=== PATIENT | male | born 1950 | race Caucasian/White ===

== ENCOUNTER 2017-09-26 10:24 | Inpatient (IN) | payer MEDICARE, OTHER ==
[2017-09-26 11:09] LABS: % EOSINOPHILS 0.9 % (0.0-5.0); % LYMPHOCYTES 21.1 % (20.0-50.0); % MONOCYTES 10.1 % (2.0-10.0); % NEUTROPHILS 67.9 % (40.0-80.0); EOSINOPHILE ABSOLUTE 0.1 Th/cmm (0.1-0.4); HEMATOCRIT 47.2 % (41.0-60); HEMOGLOBIN 16.3 gm/dL (12-16); LYMPHOCYTE ABSOLUTE 1.4 Th/cmm (1.5-3.0); MEAN CELL VOLUME 93.5 fl (80-99); MEAN CORPUSCULAR HEMOGLOBIN 32.3 pg (27.0-31.0); MEAN CORPUSCULAR HGB CONC 34.6 pg (28.0-36.0); MEAN PLATELET VOLUME 7.6 fl; MONOCYTE ABSOLUTE 0.7 Th/cmm (0.3-1.0); NEUTROPHILE ABSOLUTE 4.5 Th/cmm (1.8-8.0); PLATELET COUNT 109 Th/cmm (150-400); RED BLOOD COUNT 5.04 Mil/cmm (3.80-5.80); RED CELL DISTRIBUTION WIDTH 13.4 % (11.5-20.0); WHITE BLOOD COUNT 6.7 Th/cmm (4.8-10.8)
[2017-09-26 11:17] LABS: ALB/GLOB RATIO 1.3 (1.0-1.8); ALBUMIN 3.8 gm/dL (4.2-5.5); ALKALINE PHOSPHATASE 79 U/L (34-104); ANION GAP 11.4 (7.0-16.0); BILIRUBIN,TOTAL 1.3 mg/dL (0.3-1.0); BUN - UREA NITROGEN 19 mg/dL (7-25); CALCIUM SERUM 9.5 mg/dL (8.6-10.3); CARBON DIOXIDE 23.7 mEq/L (21.0-31.0); CHLORIDE 106 mEq/L (98-107); CHOLESTEROL 114 mg/dL (<200); CREATININE - SERUM 0.7 mg/dL (0.7-1.3); GFR AFRICAN-AMERICAN > 60.0 ml/min (>90); GFR NON AFRICAN-AMERICAN > 60.0 ml/min; GLUCOSE 104 mg/dL (70-105); HDL -HIGH DENSITY LIPOPROTEIN 41 mg/dL (23-92); POTASSIUM SERUM 4.1 mEq/L (3.5-5.1); SGOT 83 U/L (13-39); SGPT/ALT 91 U/L (7-52); SODIUM SERUM 137 mEq/L (136-145); TOTAL PROTEIN,SERUM 6.7 gm/dL (6.0-8.3); TRIGLYCERIDES 77 mg/dL (<150)
--- NOTE | 2017-09-26 11:19 | Diagnostic Imaging Report ---
Portable chest x-ray HISTORY: Chest pain The heart is enlarged. There are bilateral interstitial lung changes with an overall appearance that suggests chronic change. Clinical correlation is needed. No pleural fluid. No definite hilar or mediastinal abnormalities. IMPRESSION: 1. Cardiomegaly 2. Bilateral lower lobe interstitial lung changes. The overall appearance suggests a chronic etiology. However, clinical correlation is needed.
--- NOTE | 2017-09-26 11:19 | Diagnostic Imaging Report ---
CT scan of the brain without contrast History: Stroke, CVA Total DLP equals 708 CTDI equals 38.7 Axial sections were obtained from the base of the skull to the vertex. There is a normal ventricular system size. No focal parenchymal lesions are seen. No evidence of any mass effect or shift of midline structures. No extra-axial masses or abnormal fluid collections. Impression: Negative examination
--- NOTE | 2017-09-26 11:21 | ED Physician Chart ---
ED Chief Complaint/HPI - Patient Information Date Seen:: 09/26/17 Time Seen:: 10:45 Chief Complaint:: Palpitations History of Present Illness:: onset x one day of palpitations, C/P, and dyspnea; pt denies trauma, H/As, S/T, neck pain, Abd. Pain, A/N/V/D/c, fever, chills, or urinary s/s Allergies:: Allergies Allergy/AdvReac Type Severity Reaction Status Date / Time No Known Allergies Allergy Verified 09/26/17 10:45 Vitals:: Vital Signs - 8 hr 09/26/17 09/26/17 10:46 11:09 Temp 97.6 F 98.8 F HR 118 88 RR 22 18 BP 169/124 143/77 O2 Sat % 97 98 Historian:: Patient Review:: Nurse's Note Reviewed ED Review of Systems - Review of Systems General/Constitutional: No fever, No chills, No weight loss, No weakness, No diaphoresis, No edema, No loss of appetite Skin: No skin lesions, No rash, No bruising Head: No headache, No light-headedness Eyes: No loss of vision, No pain, No diplopia ENT: No earache, No nasal drainage, No sore throat, No tinnitus Neck: No neck pain, No swelling, No thyromegaly, No stiffness, No mass noted Cardio Vascular: Chest pain, Palpitations, No PND, No orthopnea, No edema Pulmonary: SOB, No cough, No sputum, No wheezing GI: No nausea, No vomiting, No diarrhea, No pain, No melena, No hematochezia, No constipation, No hematemesis G/U: No dysuria, No frequency, No hematuria, No nacturia Musculoskeletal: No bone or joint pain, No back pain, No muscle pain Endocrine: No polyuria, No polydipsia Psychiatric: No prior psych history, No depression, No anxiety, No suicidal ideation, No homicidal ideation, No auditory hallucination, No visual hallucination Hematopoietic: No bruising, No lymphadenopathy Allergic/Immuno: No urticaria, No angioedema Neurological: No syncope, No focal symptoms, No weakness, No paresthesia, No headache, No seizure, No dizziness, No confusion, No vertigo ED Past Medical History - Past Medical History Obtainable: Yes Past Medical History: HTN, CAD, Dyslipidemia Family History: HTN Social History: Smoker, No Alcohol, No Drug Use, Single Surgical History: None Psychiatricy History: None Medication: Reviewed Family Medical History - Family Member Mother Hx Family Hypertension: Yes ED Physical Exam - Physical Examination General/Constitutional: Awake, Well-developed, well-nourished, Alert, No distress, GCS 15, Non-toxic appearing, Ambulatory Head: Atraumatic Eyes: Lids, conjuctiva normal, PERRL, EOMI Skin: Nl inspection, No rash, No skin lesions, No ecchymosis, Well hydrated, No lymphadenopathy ENMT: External ears, nose nl, TM canals nl, Nasal exam nl, Lips, teeth, gums nl , Oropharynx nl, Tonsils nl Neck: Nontender, Full ROM w/o pain, No JVD, No nuchal rigidity, No bruit, No mass, No stridor Respiratory: Nl effort/Exclusion, Clear to Auscultation, No Wheeze/Rhonchi/Rales Cardio Vascular: No murmur, gallop, rubs, NL S1 S2, Carotid/Femoral/Distal pulses equal bilaterally Other Cardio Vascular comments:: Irregular Irregular Rhythm GI: No tenderness/rebounding/guarding, No organomegaly, No hernia, Normal BS's, Nondistended, No mass/bruits, No McBurney tenderness : No CVA tenderness Extremities: No tenderness or effusion, Full ROM, normal strength in all extremities, No edema, Normal digits & nails Neuro/Psych: Alert/oriented, DTR's symmetric, Normal sensory exam, Normal motor strength, Judgement/insight normal, Mood normal, Normal gait, No focal deficits Misc: Normal back, No paraspinal tenderness ED Labs/Radiology/EKG Results - Lab Results Results: Laboratory Tests 09/26/17 10:50 WBC 6.7 RBC 5.04 Hgb 16.3 Hct 47.2 MCV 93.5 MCH 32.3 H MCHC Differential 34.6 RDW 13.4 Plt Count 109 L MPV 7.6 Neutrophils % 67.9 Lymphocytes % 21.1 Monocytes % 10.1 H Eosinophils % 0.9 Basophils % 0.0 - Radiology Results Comments:: CXR: CM; CHF - EKG Interpretations EKG Time:: 10:27 Rate & Rhythm: 115; Atrial Fibrillation Comments:: non-specific st-t changes ED Septic Shock - . Is Septic Shock (SBP<90, OR Lactate>4 mmol\L) present?: No - <6hrs of presentation: Vital Signs: Vital Signs - 8 hr 09/26/17 09/26/17 10:46 11:09 Temp 97.6 F 98.8 F HR 118 88 RR 22 18 BP 169/124 143/77 O2 Sat % 97 98 ED Reassessment (Disposition) - Reassessment Reassessment Condition:: Improved - Diagnosis Diagnosis:: Dx: CHF; Atrial Fibrillation; Chest Pain; Dyspnea; Angina Pectoris; Palpitations ; Unstable Angina; Hypertension; Uncontrolled HTN - Aftercare/Follow up Instructions Aftercare/Follow-Up Instructions:: Counseled pt regarding lab results/diagnosis & need follow up, Counseled pt & family regarding lab results/diagnosis & need follow up - Patient Disposition Discharge/Transfer:: Acute Care w/in this hosp Accepting Physician:: Dr. Rahul Eastman Time Called:: 1230 Time Responded:: 12:30 Admitted to:: Telemetry Spoke to:: Dr. Eastman Admitting Medical Physician:: Dr. Eastman Condition at Disposition:: Stable, Improved
[2017-09-26] MEDS ORDERED: Aspirin 81mg Chewable Tab PO STA (11:24)
[2017-09-26] MEDS ORDERED: Aspirin 81mg Chewable Tab ONE (11:28)
[2017-09-26 11:38] LABS: INR 1.1 (0.5-1.4); PROTHROMBIN TIME (TEST) 11.5 SECONDS (9.5-11.5)
[2017-09-26] MEDS ORDERED: NITROGLYCERIN OINT 2% 1 INCH PACKET TP STA (12:28)
[2017-09-26] MEDS ORDERED: NITROGLYCERIN OINT 2% 1 INCH PACKET TP ONE (12:38)
[2017-09-26 15:50] LABS: AMPHETAMINE URINE NEGATIVE (NEGATIVE); BARBITURATES URINE NEGATIVE (NEGATIVE); BENZODIAZEPINES QUAL URINE NEGATIVE (NEGATIVE); CANNABINOID THC NEGATIVE (NEGATIVE); COCAINE METABOLITE QUAL URINE NEGATIVE (NEGATIVE); METHADONE URINE NEGATIVE (NEGATIVE); METHAMPHETAMINES QUAL URINE POSITIVE (NEGATIVE); OPIATES (MORPHINE) QUAL. URINE NEGATIVE (NEGATIVE); PHENCYCLIDINE (PCP) URINE NEGATIVE (NEGATIVE); TRICYCLICS (TCA) QUAL. URINE NEGATIVE (NEGATIVE)
[2017-09-26 16:02] VITALS: BP 132/105
--- NOTE | 2017-09-26 19:00 | History and Physical ---
History of Present Illness - HPI Chief Complaint: Palpitations HPI: 67 y/o male who presents to [facility] ER for palpitations and chest pain x 1 day. Patient also admits to dyspnea. Patient denies trauma. Patient denies CANTRELL's No diaphoresis, Denies Nausea, vomiting, constipation or diarrhea. Denies fever or chills. Patient was noted to have BP 169/124 with HR 118. Patient has a history of HTN, CAD, Hyperlipidemia and takes Metoprolol tartrate 50mg 0.5tab twice daily. Initial labwork WBC 6.7 H/H 16.3/47.2 platelets 109K CXR shows cardiomegaly, CHF EKG atrial Fib w/ non-specific ST-T changes Patient was subsequently admitted for further evaluation and treatment. Vital Signs: Last Vital Signs Temp 98.3 F 09/26/17 15:16 Pulse 91 09/26/17 18:38 Resp 22 09/26/17 18:38 BP 132/105 09/26/17 16:29 Pulse Ox 94 09/26/17 18:38 Past Medical History Cardiovascular: Report: CAD, HTN, Hyperlipidemia Pulmonary: Report: No Pertinent Hx [employer]: Report: No Pertinent Hx GI: Report: No Pertinent Hx Psych: Report: No Pertinent Hx Musculoskeletal: Report: No Pertinent Hx Rheumatologic: Report: No pertinent Hx Infectious Disease: Report: No Pertinent Hx Renal/: Report: No Pertinent Hx Endocrine: Report: No Pertinent Hx Dermatology: Report: No Pertinent Hx - Past Surgical History Past Surgical History: No pertinent Hx Family Medical History - Family Member Mother History Unknown: Yes Hx Family Cancer: Yes Hx Family Hypertension: Yes Hx Family Dementia: Yes Social History Smoke: No Alcohol: None (UDS +Methamphetamines) Drugs: Other (UDS+) Lives: Alone - Medications Home Medications: Home Medication Medication Instructions Recorded Type Metoprolol Tartrate [Lopressor] 50 mg PO DAILY 09/26/17 History Warfarin Sodium 2 mg PO DAILY 09/26/17 History - Allergies Allergies/Adverse Reactions: Allergies Allergy/AdvReac Type Severity Reaction Status Date / Time No Known Allergies Allergy Verified 09/26/17 10:45 Review of Systems - Review of Systems Constitutional: Report: No Significant Eyes: Report: No Significant ENT: Report: No Significant Respiratory: Report: No Significant Cardiovascular: Report: Chest Pain, Palpitations Gastrointestinal: Report: No Significant Genitourinary: Report: No Significant Musculoskeletal: Report: No Significant Skin: Report: No Significant Neurological: Report: No Significant Physical Exam - Physical Exam HEENT: Report: Ears Nose Throat within normal limits, Pharnyx within normal limits Neck: Report: Within normal limits Cardiovascular Systems: Report: +s1/s2 noted, Regular, Rate and Rhythm Respiratory: Report: Breath Sounds are within normal limits, Clear to Auscultation of lung guidry Abdomen: Report: Non-tender to palpation Back: Report: Inspection of back is within normal limits. Extremities: Report: Non-tender to palpation. Skin: Report: Color of skin is within normal limits, Warm Neuro/Psych: Report: Mood affect is within normal limits, A+Ox3 - Assessment Assessment: Current Active Problems Problem Status Onset CHEST PALPATATIONS Acute Chest pain Cardiac Arrhythmia Hypertension Hyperlipidemia Elevated Liver Function UTI CAD +UDS Hepatitis C - Plan Plan: See orders
[2017-09-26 21:58] LABS: URINE MICROSCOPIC INDICATED? YES; URINE SOURCE CLEAN C
[2017-09-26 22:11] LABS: URINE BILIRUBIN SMALL (NEGATIVE); URINE BLOOD SMALL (NEGATIVE); URINE GLUCOSE (UA) NEGATIVE (NEGATIVE); URINE KETONE TRACE mg/dL (NEGATIVE); URINE LEUKOCYTE ESTERASE NEGATIVE (NEGATIVE); URINE NITRATE NEGATIVE (NEGATIVE); URINE PROTEIN NEGATIVE (NEGATIVE)
[2017-09-26 22:21] LABS: URINE CLARITY CLEAR (CLEAR); URINE COLOR YELLOW
[2017-09-26 22:22] LABS: URINE BACTERIA NONE SEEN /hpf (NONE SEEN); URINE EPITHELIAL CELLS NONE SEEN /lpf (FEW); URINE RBC 0-2 /hpf (0-5); URINE WBC NONE SEEN /hpf (0-5)
[2017-09-27] MEDS ORDERED: cefTRIAXone 1 GM in Sodium Chloride 0.9% 50 ML IV SCH (07:00)
[2017-09-27 07:29] LABS: % EOSINOPHILS 0.6 % (0.0-5.0); % LYMPHOCYTES 20.2 % (20.0-50.0); % MONOCYTES 10.7 % (2.0-10.0); % NEUTROPHILS 68.5 % (40.0-80.0); HEMATOCRIT 48.6 % (41.0-60); HEMOGLOBIN 17.2 gm/dL (12-16); LYMPHOCYTE ABSOLUTE 1.3 Th/cmm (1.5-3.0); MEAN CELL VOLUME 91.3 fl (80-99); MEAN CORPUSCULAR HEMOGLOBIN 32.3 pg (27.0-31.0); MEAN CORPUSCULAR HGB CONC 35.4 pg (28.0-36.0); MEAN PLATELET VOLUME 7.8 fl; MONOCYTE ABSOLUTE 0.7 Th/cmm (0.3-1.0); NEUTROPHILE ABSOLUTE 4.3 Th/cmm (1.8-8.0); PLATELET COUNT 100 Th/cmm (150-400); RED BLOOD COUNT 5.32 Mil/cmm (3.80-5.80); RED CELL DISTRIBUTION WIDTH 13.5 % (11.5-20.0); WHITE BLOOD COUNT 6.3 Th/cmm (4.8-10.8)
[2017-09-27 07:45] LABS: INR 1.13 (0.5-1.4); PROTHROMBIN TIME (TEST) 11.9 SECONDS (9.5-11.5)
[2017-09-27 07:55] LABS: ALB/GLOB RATIO 1.3 (1.0-1.8); ALBUMIN 3.9 gm/dL (4.2-5.5); ALKALINE PHOSPHATASE 80 U/L (34-104); ANION GAP 10.7 (7.0-16.0); BILIRUBIN,TOTAL 1.8 mg/dL (0.3-1.0); BUN - UREA NITROGEN 14 mg/dL (7-25); CALCIUM SERUM 9.7 mg/dL (8.6-10.3); CARBON DIOXIDE 27.5 mEq/L (21.0-31.0); CHLORIDE 102 mEq/L (98-107); CREATININE - SERUM 0.9 mg/dL (0.7-1.3); GFR AFRICAN-AMERICAN > 60.0 ml/min (>90); GFR NON AFRICAN-AMERICAN > 60.0 ml/min; GLUCOSE 101 mg/dL (70-105); POTASSIUM SERUM 4.2 mEq/L (3.5-5.1); SGOT 105 U/L (13-39); SGPT/ALT 107 U/L (7-52); SODIUM SERUM 136 mEq/L (136-145)
[2017-09-27] MEDS ORDERED: Pneumococcal Vaccine 0.5 mL Vial IM ONE (09:00)
[2017-09-27] MEDS ORDERED: Probiotic Screen MC PRN (13:00)
[2017-09-27 13:16] LABS: HEP A AB IGM Negative (Negative); HEP B CORE IGM Negative (Negative); HEP B SURFACE AG QL Negative (Negative); HEP C ANTIBODY >11.0 s/co ratio (0.0-0.9)
--- NOTE | 2017-09-28 05:14 | Consultation ---
DATE OF CONSULTATION: 09/27/[address] Rahul Gardner. HISTORY AND PHYSICAL: This is a 67-year-old male patient who had been admitted due to chest pain, shortness of breath. No history of PND, orthopnea. PAST MEDICAL HISTORY: Hypertension, coronary artery disease, hyperlipidemia, metoprolol. FAMILY HISTORY: Unremarkable. SOCIAL HISTORY: No history of smoking, alcohol abuse. ALLERGIES: None. PHYSICAL EXAMINATION: VITAL SIGNS: Blood pressure 130/80, pulse 70, respirations 20. HEAD: Normocephalic. No lumps or bumps. EYES: Pupils equal, reactive to light. Fundi showing nicking, sclerae white, conjunctivae pink. NECK: Carotid 2+. Normal upstroke. JVD flat. Thyroid not palpable. Lymph nodes not palpable. CHEST: Shows increased AP diameter. No kyphosis, scoliosis. LUNGS: Bilateral breath sounds. HEART: PMI fifth intercostal space with lateral to midclavicular line. S1 irregular. S2, S3, S4, soft systolic murmur. ABDOMEN: Soft. Liver, spleen not palpable. No organomegaly. Bowel sounds active. NEUROLOGIC: Unremarkable. EXTREMITIES: Peripheral pulses 2+. No pedal edema. CLINICAL IMPRESSION: 1. Chest pain. 2. Atrial fibrillation. 3. Congestive heart failure. 4. Diastolic dysfunction. 5. Acute hypertension. 6. Angina. 7. Hyperlipidemia. 8. Hepatitis C with elevated liver enzymes. PLAN: The patient to have echocardiogram. Lasix troponin level and monitor the patient on telemetry bed. JOB# [id number]
--- NOTE | 2017-09-28 08:00 | General Progress Note ---
Subjective - Review of Systems Service Date: 09/28/17 Subjective: patient was seen and examined. feeling better today. denies chest pain or shortness of breath. Objective - Results Result Diagrams: 09/27/17 07:09 09/27/17 07:09 Recent Labs: Laboratory Last Values WBC 6.3 Th/cmm (4.8-10.8) 09/27/17 07:09 RBC 5.32 Mil/cmm (3.80-5.80) 09/27/17 07:09 Hgb 17.2 gm/dL (12-16) 09/27/17 07:09 Hct 48.6 % (41.0-60) 09/27/17 07:09 MCV 91.3 fl (80-99) 09/27/17 07:09 MCH 32.3 pg (27.0-31.0) H 09/27/17 07:09 MCHC Differential 35.4 pg (28.0-36.0) 09/27/17 07:09 RDW 13.5 % (11.5-20.0) 09/27/17 07:09 Plt Count 100 Th/cmm (150-400) L 09/27/17 07:09 MPV 7.8 fl 09/27/17 07:09 Neutrophils % 68.5 % (40.0-80.0) 09/27/17 07:09 Lymphocytes % 20.2 % (20.0-50.0) 09/27/17 07:09 Monocytes % 10.7 % (2.0-10.0) H 09/27/17 07:09 Eosinophils % 0.6 % (0.0-5.0) 09/27/17 07:09 Basophils % 0.0 % (0.0-2.0) 09/27/17 07:09 PT 11.9 SECONDS (9.5-11.5) H 09/27/17 07:09 INR 1.13 (0.5-1.4) 09/27/17 07:09 Sodium 136 mEq/L (136-145) 09/27/17 07:09 Potassium 4.2 mEq/L (3.5-5.1) 09/27/17 07:09 Chloride 102 mEq/L (98-107) 09/27/17 07:09 Carbon Dioxide 27.5 mEq/L (21.0-31.0) 09/27/17 07:09 Anion Gap 10.7 (7.0-16.0) 09/27/17 07:09 BUN 14 mg/dL (7-25) 09/27/17 07:09 Creatinine 0.9 mg/dL (0.7-1.3) 09/27/17 07:09 Est GFR ( Amer) > 60.0 ml/min (>90) 09/27/17 07:09 Est GFR (Non-Af Amer) > 60.0 ml/min 09/27/17 07:09 BUN/Creatinine Ratio 15.6 09/27/17 07:09 Glucose 101 mg/dL (70-105) 09/27/17 07:09 Calcium 9.7 mg/dL (8.6-10.3) 09/27/17 07:09 Total Bilirubin 1.8 mg/dL (0.3-1.0) H 09/27/17 07:09 AST 105 U/L (13-39) H 09/27/17 07:09 ALT 107 U/L (7-52) H 09/27/17 07:09 Alkaline Phosphatase 80 U/L (34-104) 09/27/17 07:09 Creatine Kinase 100 U/L (30-223) 09/26/17 10:50 Troponin I 0.01 ng/mL (0.01-0.05) 09/26/17 10:50 B-Natriuretic Peptide 385.0 pg/mL (5.0-100.0) H 09/27/17 07:09 Total Protein 7.0 gm/dL (6.0-8.3) 09/27/17 07:09 Albumin 3.9 gm/dL (4.2-5.5) L 09/27/17 07:09 Globulin 3.1 gm/dL 09/27/17 07:09 Albumin/Globulin Ratio 1.3 (1.0-1.8) 09/27/17 07:09 Triglycerides 77 mg/dL (<150) 09/26/17 10:50 Cholesterol 114 mg/dL (<200) 09/26/17 10:50 LDL Cholesterol Direct 65 mg/dL (75-193) L 09/26/17 10:50 HDL Cholesterol 41 mg/dL (23-92) 09/26/17 10:50 TSH 0.92 uIU/ml (0.34-5.60) 09/27/17 07:09 Urine Source CLEAN C 09/26/17 21:00 Urine Color YELLOW 09/26/17 21:00 Urine Clarity CLEAR (CLEAR) 09/26/17 21:00 Urine pH 6.0 (4.6 - 8.0) 09/26/17 21:00 Ur Specific [place] 1.025 (1.005-1.030) 09/26/17 21:00 Urine Protein NEGATIVE mg/dL (NEGATIVE) 09/26/17 21:00 Urine Glucose (UA) NEGATIVE mg/dL (NEGATIVE) 09/26/17 21:00 Urine Ketones TRACE mg/dL (NEGATIVE) 09/26/17 21:00 Urine Blood SMALL (NEGATIVE) H 09/26/17 21:00 Urine Nitrate NEGATIVE (NEGATIVE) 09/26/17 21:00 Urine Bilirubin SMALL (NEGATIVE) H 09/26/17 21:00 Urine Urobilinogen 2.0 E.U./dL (0.2 - 1.0) 09/26/17 21:00 Ur Leukocyte Esterase NEGATIVE (NEGATIVE) 09/26/17 21:00 Urine RBC 0-2 /hpf (0-5) H 09/26/17 21:00 Urine WBC NONE SEEN /hpf (0-5) 09/26/17 21:00 Ur Epithelial Cells NONE SEEN /lpf (FEW) 09/26/17 21:00 Urine Bacteria NONE SEEN /hpf (NONE SEEN) 09/26/17 21:00 Urine Opiates Screen NEGATIVE (NEGATIVE) 09/26/17 02:35 Urine Methadone Screen NEGATIVE (NEGATIVE) 09/26/17 02:35 Ur Barbiturates Screen NEGATIVE (NEGATIVE) 09/26/17 02:35 Ur Tricyclics Screen NEGATIVE (NEGATIVE) 09/26/17 02:35 Ur Phencyclidine Scrn NEGATIVE (NEGATIVE) 09/26/17 02:35 Amphetamines Screen NEGATIVE (NEGATIVE) 09/26/17 02:35 U Methamphetamines Scrn POSITIVE (NEGATIVE) H 09/26/17 02:35 U Benzodiazepines Scrn NEGATIVE (NEGATIVE) 09/26/17 02:35 U Cocaine Metab Screen NEGATIVE (NEGATIVE) 09/26/17 02:35 U Cannabinoids Screen NEGATIVE (NEGATIVE) 09/26/17 02:35 Hepatitis A IgM Ab Negative (Negative) 09/26/17 10:50 Hep Bs Antigen Negative (Negative) 09/26/17 10:50 Hep B Core IgM Ab Negative (Negative) 09/26/17 10:50 Hepatitis C Antibody >11.0 s/co ratio (0.0-0.9) H 09/26/17 10:50 - Physical Exam Vitals and I&O: Vital Signs Temp 96.8 F 09/28/17 04:02 Pulse 109 09/28/17 04:02 Resp 17 09/28/17 04:02 BP 148/99 09/28/17 04:02 Pulse Ox 94 09/28/17 04:02 Intake & Output 09/27/17 09/28/17 09/28/17 18:59 06:59 18:59 Intake Total 500 Output Total 0 Balance 500 Weight (lbs) 90.718 kg 101.65 kg Intake: Oral 500 Output: Stool 0 Other: # Voids 4 # Bowel Movements 1 Weight Source Patient stated Bedscale Active Medications: Current Medications Ceftriaxone Sodium 1 gm/ (Dextrose) 50 mls @ 100 mls/hr IV Q24HR [facility] Stop: 11/27/17 06:59 Last Admin: 09/28/17 06:22 Dose: 100 mls/hr Lactobacillus Rhamnosus (Culturelle 15b) 1 each PO DAILY [facility] Stop: 11/27/17 08:59 Lorazepam (Ativan) 1 mg IVP Q4HR PRN; Protocol PRN Reason: Agitation Stop: 11/25/17 19:04 Last Admin: 09/26/17 21:50 Dose: 1 mg Metoprolol Tartrate (Lopressor) 25 mg PO BID [facility] Stop: 11/25/17 16:59 Last Admin: 09/27/17 17:25 Dose: 25 mg Miscellaneous (Probiotic Screen) 1 ea MC PRN PRN PRN Reason: PROTOCOL Stop: 11/26/17 12:59 Rivaroxaban (Xarelto) 10 mg PO DAILY [facility] Stop: 11/26/17 08:59 Last Admin: 09/27/17 09:28 Dose: 10 mg General: Alert, Oriented x3, No acute distress HEENT: Atraumatic, PERRLA, EOMI Neck: Supple Cardiovascular: Other (irregularly irregular) Lungs: Clear to auscultation Abdomen: Bowel sounds, Soft Extremities: no Clubbing, no Cyanosis, no Edema Assessment/Plan - Problem List Patient Problems: All Active Problems CHEST PALPATATIONS (Acute) - Assessment Assessment: Current Active Problems Problem Status Onset CHEST PALPATATIONS Acute Chest pain Cardiac Arrhythmia Hypertension Hyperlipidemia Elevated Liver Function UTI CAD +UDS Hepatitis C - Plan Plan: continue telemetry continue current treatment for ECHO cardiac consult
[2017-09-28] MEDS: Lactobacillus Rhamnosus GG 15 Billion CFU CAP.SPRINK PO SCH (09:34)
[2017-09-28] MEDS: NIFEdipine 30 mg ER Tab PO SCH (16:28)
--- NOTE | 2017-09-28 17:36 | Cardiology ---
09/27/[address] Rahul Gardner. STUDY: Echocardiogram. M-MODE ECHOCARDIOGRAM: Mitral valve, anterior leaflet of mitral valve shows decreased excursion, EF velocity. Posterior leaflet of the mitral valve shows decreased excursion. Left ventricular posterior wall shows increased thickness, decreased excursion. Interventricular septum shows increased thickness, decreased excursion, ejection fraction 40%. Left atrium normal. Aortic root shows normal dimension, normal excursion of aortic leaflets. CONCLUSION: Enlarged left ventricular cavity with decreased ejection fraction 40%. 2D ECHO: Long axis view shows enlarged left ventricular cavity with decreased ejection fraction. Left atrium normal. Aortic root shows normal dimension, normal excursion of aortic leaflets. Short axis view shows mitral valve normal. Short axis view shows aortic valve normal. Apical four chamber view shows enlarged left ventricular cavity with decreased ejection fraction. Left atrium normal, right ventricular cavity and right atrium normal. CONCLUSION: Cardiomyopathy, ejection fraction 40%. Doppler study shows mild tricuspid regurgitation, mild mitral regurgitation, right ventricular systolic pressure 48 mmHg with mild pulmonary hypertension. [facility]# [id number]
--- NOTE | 2017-09-29 05:56 | General Progress Note ---
Subjective - Review of Systems Service Date: 09/29/17 Subjective: patient was seen and examined. even better today. denies chest pain or shortness of breath. Patient states that he is feeling even better today. for abd us this am Objective - Results Result Diagrams: 09/27/17 07:09 09/27/17 07:09 Recent Labs: Laboratory Last Values WBC 6.3 Th/cmm (4.8-10.8) 09/27/17 07:09 RBC 5.32 Mil/cmm (3.80-5.80) 09/27/17 07:09 Hgb 17.2 gm/dL (12-16) 09/27/17 07:09 Hct 48.6 % (41.0-60) 09/27/17 07:09 MCV 91.3 fl (80-99) 09/27/17 07:09 MCH 32.3 pg (27.0-31.0) H 09/27/17 07:09 MCHC Differential 35.4 pg (28.0-36.0) 09/27/17 07:09 RDW 13.5 % (11.5-20.0) 09/27/17 07:09 Plt Count 100 Th/cmm (150-400) L 09/27/17 07:09 MPV 7.8 fl 09/27/17 07:09 Neutrophils % 68.5 % (40.0-80.0) 09/27/17 07:09 Lymphocytes % 20.2 % (20.0-50.0) 09/27/17 07:09 Monocytes % 10.7 % (2.0-10.0) H 09/27/17 07:09 Eosinophils % 0.6 % (0.0-5.0) 09/27/17 07:09 Basophils % 0.0 % (0.0-2.0) 09/27/17 07:09 PT 11.9 SECONDS (9.5-11.5) H 09/27/17 07:09 INR 1.13 (0.5-1.4) 09/27/17 07:09 Sodium 136 mEq/L (136-145) 09/27/17 07:09 Potassium 4.2 mEq/L (3.5-5.1) 09/27/17 07:09 Chloride 102 mEq/L (98-107) 09/27/17 07:09 Carbon Dioxide 27.5 mEq/L (21.0-31.0) 09/27/17 07:09 Anion Gap 10.7 (7.0-16.0) 09/27/17 07:09 BUN 14 mg/dL (7-25) 09/27/17 07:09 Creatinine 0.9 mg/dL (0.7-1.3) 09/27/17 07:09 Est GFR ( Amer) > 60.0 ml/min (>90) 09/27/17 07:09 Est GFR (Non-Af Amer) > 60.0 ml/min 09/27/17 07:09 BUN/Creatinine Ratio 15.6 09/27/17 07:09 Glucose 101 mg/dL (70-105) 09/27/17 07:09 Calcium 9.7 mg/dL (8.6-10.3) 09/27/17 07:09 Total Bilirubin 1.8 mg/dL (0.3-1.0) H 09/27/17 07:09 AST 105 U/L (13-39) H 09/27/17 07:09 ALT 107 U/L (7-52) H 09/27/17 07:09 Alkaline Phosphatase 80 U/L (34-104) 09/27/17 07:09 Creatine Kinase 100 U/L (30-223) 09/26/17 10:50 Troponin I 0.01 ng/mL (0.01-0.05) 09/26/17 10:50 B-Natriuretic Peptide 385.0 pg/mL (5.0-100.0) H 09/27/17 07:09 Total Protein 7.0 gm/dL (6.0-8.3) 09/27/17 07:09 Albumin 3.9 gm/dL (4.2-5.5) L 09/27/17 07:09 Globulin 3.1 gm/dL 09/27/17 07:09 Albumin/Globulin Ratio 1.3 (1.0-1.8) 09/27/17 07:09 Triglycerides 77 mg/dL (<150) 09/26/17 10:50 Cholesterol 114 mg/dL (<200) 09/26/17 10:50 LDL Cholesterol Direct 65 mg/dL (75-193) L 09/26/17 10:50 HDL Cholesterol 41 mg/dL (23-92) 09/26/17 10:50 TSH 0.92 uIU/ml (0.34-5.60) 09/27/17 07:09 Urine Source CLEAN C 09/26/17 21:00 Urine Color YELLOW 09/26/17 21:00 Urine Clarity CLEAR (CLEAR) 09/26/17 21:00 Urine pH 6.0 (4.6 - 8.0) 09/26/17 21:00 Ur Specific [place] 1.025 (1.005-1.030) 09/26/17 21:00 Urine Protein NEGATIVE mg/dL (NEGATIVE) 09/26/17 21:00 Urine Glucose (UA) NEGATIVE mg/dL (NEGATIVE) 09/26/17 21:00 Urine Ketones TRACE mg/dL (NEGATIVE) 09/26/17 21:00 Urine Blood SMALL (NEGATIVE) H 09/26/17 21:00 Urine Nitrate NEGATIVE (NEGATIVE) 09/26/17 21:00 Urine Bilirubin SMALL (NEGATIVE) H 09/26/17 21:00 Urine Urobilinogen 2.0 E.U./dL (0.2 - 1.0) 09/26/17 21:00 Ur Leukocyte Esterase NEGATIVE (NEGATIVE) 09/26/17 21:00 Urine RBC 0-2 /hpf (0-5) H 09/26/17 21:00 Urine WBC NONE SEEN /hpf (0-5) 09/26/17 21:00 Ur Epithelial Cells NONE SEEN /lpf (FEW) 09/26/17 21:00 Urine Bacteria NONE SEEN /hpf (NONE SEEN) 09/26/17 21:00 Urine Opiates Screen NEGATIVE (NEGATIVE) 09/26/17 02:35 Urine Methadone Screen NEGATIVE (NEGATIVE) 09/26/17 02:35 Ur Barbiturates Screen NEGATIVE (NEGATIVE) 09/26/17 02:35 Ur Tricyclics Screen NEGATIVE (NEGATIVE) 09/26/17 02:35 Ur Phencyclidine Scrn NEGATIVE (NEGATIVE) 09/26/17 02:35 Amphetamines Screen NEGATIVE (NEGATIVE) 09/26/17 02:35 U Methamphetamines Scrn POSITIVE (NEGATIVE) H 09/26/17 02:35 U Benzodiazepines Scrn NEGATIVE (NEGATIVE) 09/26/17 02:35 U Cocaine Metab Screen NEGATIVE (NEGATIVE) 09/26/17 02:35 U Cannabinoids Screen NEGATIVE (NEGATIVE) 09/26/17 02:35 Hepatitis A IgM Ab Negative (Negative) 09/26/17 10:50 Hep Bs Antigen Negative (Negative) 09/26/17 10:50 Hep B Core IgM Ab Negative (Negative) 09/26/17 10:50 Hepatitis C Antibody >11.0 s/co ratio (0.0-0.9) H 09/26/17 10:50 - Physical Exam Vitals and I&O: Vital Signs Temp 99 F 09/29/17 00:00 Pulse 100 09/29/17 00:00 Resp 18 09/29/17 00:00 BP 137/96 09/29/17 00:00 Pulse Ox 95 09/29/17 00:00 Intake & Output 09/28/17 09/28/17 09/29/17 06:59 18:59 06:59 Intake Total 500 850 100 Output Total 0 Balance 500 850 100 Weight (lbs) 101.65 kg 10.886 kg 97.636 kg Intake: Intake, IV Amount 50 cefTRIAXone 1 gm In 50 Dextrose 5% 50 ml @ 100 mls/hr IV Q24HR [facility] Rx#: [id number] Oral 500 800 100 Output: Stool 0 Other: # Voids 4 3 8 # Bowel Movements 1 1 0 Weight Source Bedscale Bedscale Bedscale Active Medications: Current Medications Furosemide (Lasix) 40 mg IVP DAILY [facility] Stop: 11/27/17 16:59 Last Admin: 09/28/17 16:27 Dose: 40 mg Ceftriaxone Sodium 1 gm/ (Dextrose) 50 mls @ 100 mls/hr IV Q24HR [facility] Stop: 11/27/17 06:59 Last Infusion: 09/28/17 12:57 Dose: Infused Lactobacillus Rhamnosus (Culturelle 15b) 1 each PO DAILY [facility] Stop: 11/27/17 08:59 Last Admin: 09/28/17 09:34 Dose: 1 each Lorazepam (Ativan) 1 mg IVP Q4HR PRN; Protocol PRN Reason: Agitation Stop: 11/25/17 19:04 Last Admin: 09/26/17 21:50 Dose: 1 mg Metoprolol Tartrate (Lopressor) 25 mg PO BID [facility] Stop: 11/25/17 16:59 Last Admin: 09/28/17 16:29 Dose: 25 mg Miscellaneous (Probiotic Screen) 1 ea MC PRN PRN PRN Reason: PROTOCOL Stop: 11/26/17 12:59 Nifedipine (Procardia Xl) 60 mg PO DAILY [facility] Stop: 11/27/17 16:59 Last Admin: 09/28/17 16:28 Dose: 60 mg Rivaroxaban (Xarelto) 10 mg PO DAILY [facility] Stop: 11/26/17 08:59 Last Admin: 09/28/17 09:34 Dose: 10 mg General: Alert, Oriented x3, No acute distress HEENT: Atraumatic, PERRLA, EOMI Neck: Supple Cardiovascular: Other (irregularly irregular) Lungs: Clear to auscultation Abdomen: Bowel sounds, Soft Extremities: no Clubbing, no Cyanosis, no Edema Assessment/Plan - Problem List Patient Problems: All Active Problems CHEST PALPATATIONS (Acute) - Assessment Assessment: Current Active Problems Problem Status Onset CHEST PALPATATIONS Acute Chest pain Cardiac Arrhythmia Hypertension Hyperlipidemia Elevated LFTs UTI CAD +UDS Hepatitis C - Plan Plan: continue current treatment for abd us
[2017-09-29 06:46] LABS: ALB/GLOB RATIO 1.2 (1.0-1.8); ALBUMIN 3.9 gm/dL (4.2-5.5); ALKALINE PHOSPHATASE 77 U/L (34-104); ANION GAP 12.4 (7.0-16.0); BILIRUBIN,TOTAL 1.6 mg/dL (0.3-1.0); BUN - UREA NITROGEN 22 mg/dL (7-25); CALCIUM SERUM 9.8 mg/dL (8.6-10.3); CARBON DIOXIDE 25.5 mEq/L (21.0-31.0); CHLORIDE 103 mEq/L (98-107); GFR AFRICAN-AMERICAN > 60.0 ml/min (>90); GFR NON AFRICAN-AMERICAN > 60.0 ml/min; GLUCOSE 93 mg/dL (70-105); POTASSIUM SERUM 3.9 mEq/L (3.5-5.1); SGOT 73 U/L (13-39); SGPT/ALT 85 U/L (7-52); SODIUM SERUM 137 mEq/L (136-145); TOTAL PROTEIN,SERUM 7.3 gm/dL (6.0-8.3)
[2017-09-29] MEDS: Lactobacillus Rhamnosus GG 15 Billion CFU CAP.SPRINK PO SCH (10:17)
[2017-09-29] MEDS: NIFEdipine 30 mg ER Tab PO SCH (10:17)
--- NOTE | 2017-09-29 10:27 | Diagnostic Imaging Report ---
Right upper quadrant ultrasound, limited History: Pain, elevated liver function test rule out gallstones Technique: Sonography right upper quadrant was performed in multiple planes. Findings: Gallstones are noted in the gallbladder wall measures 4 mm. No pericholecystic fluid. The common bile duct measures 5 mm. IMPRESSION: Gallstones and borderline prominent gallbladder wall. No pericholecystic fluid. Please correct clinically. If indicated nuclear medicine HIDA scan may be obtained for further assessment. If given history of elevated liver function tests, consider follow-up dedicated abdominal ultrasound for further assessment.
--- NOTE | 2017-09-29 23:44 | Consultation ---
DATE OF CONSULTATION: 09/29/2017 INPATIENT GASTROENTEROLOGY CONSULTATION CONSULTING PHYSICIAN: Rahul Gardner D.O. HISTORY OF PRESENT ILLNESS: The patient is a 67-year-old male with past medical history significant for hepatitis C, coronary artery disease, hypertension, and hyperlipidemia; who is admitted to the hospital with chest pain and shortness of breath. The patient has been diuresed and evaluated for his chest pain and found to have no coronary acute syndrome. GI was consulted given persistent mildly elevated LFTs. Of note, the patient reports he as noted above has hepatitis C diagnosis for some time. He has tried interferon-based therapy in 2007 and did not have a systemic viral response with this. He has been seen at several [facility] over the past several years including [place] and [facility] and there was plan to start him on one of the newer agents such as Harvoni, although the patient never was able to stay in one place for long enough, thus he has not been treated as of yet. PAST MEDICAL HISTORY: Hypertension, coronary artery disease, and hyperlipidemia. FAMILY HISTORY: Noncontributory. SOCIAL HISTORY: The patient denies any current smoking or alcohol abuse. ALLERGIES: No known drug allergies. REVIEW OF SYSTEMS: A 12-point review of systems was performed with the patient and is negative other than the pertinent positives mentioned in the history of present illness. CURRENT MEDICATIONS: Ceftriaxone, Lasix, lactobacillus, lorazepam, metoprolol, nifedipine, and rivaroxaban. PHYSICAL EXAMINATION: VITAL SIGNS: Blood pressure is 114/80, temperature 97.3, pulse 81 beats per minute, and pulse oximetry 95%. GENERAL: The patient is lying flat in bed, alert and oriented x3, no apparent distress. HEENT: Normocephalic, atraumatic appearing head. Pupils are equal and reactive to light. There is slight scleral icterus. Moist mucous membranes. NECK: Supple. No JVD or thyromegaly or lymphadenopathy. CHEST: Clear to auscultation bilaterally. CARDIOVASCULAR: S1, S2 present. Regular rate and rhythm. ABDOMEN: Soft, nontender to palpation. No guarding or rebound. No distention. EXTREMITIES: A 1+ pitting edema bilaterally. Pulses are present. SKIN: No obvious jaundice or cyanosis. LABORATORY DATA: White blood cell count 6.3, hemoglobin 17.2, and platelet count 100. INR 1.1. Sodium 137, BUN 22, creatinine 1.0, AST is 73, ALT 85, total bilirubin 1.6, and albumin 3.9. Hepatitis C antibody is positive. Hepatitis A and B are negative. Abdominal ultrasound is pending. IMPRESSION: 1. This is a 67-year-old male with coronary artery disease, hypertension, and hyperlipidemia; who was admitted to the hospital with chest pain and shortness of breath and found to have elevated liver function tests. 2. Hepatitis C. 3. Elevated liver function test. 4. History of coronary artery disease. 5. Hypertension. DISCUSSION: Most likely the patient's elevated liver function tests are due to his known hepatitis C. The patient has never been treated for this successfully and he is a . Thus, he is seen [facility]. He does need to be treated for hepatitis C and he can easily get this done at any of the [facility] and he knows this and is planning on doing this at some point soon. An abdominal ultrasound is ordered and we can follow this up. The patient may have early cirrhosis given his low platelet level, but he appears compensated, otherwise. The other viral studies are negative. RECOMMENDATIONS: 1. We will follow up the abdominal ultrasound and should there is no hepatoma in the liver. 2. The [facility] in order to be evaluated for ____ hepatitis C. This will allow his LFTs to come back down to normal, most likely. 3. If the patient does have cirrhosis, he will need an outpatient EGD and ultrasound every 6 months. This can be determined by the ultrasound findings. 4. The patient YUAN allison is stable for discharge and [facility]. GI will follow up the ultrasound and see as needed. Thank you for allowing us to participate in the care of this patient. Please call with any further questions. JOB# [id number]
--- NOTE | 2017-09-30 06:56 | General Progress Note ---
Subjective - Review of Systems Service Date: 09/30/17 Subjective: patient was seen and examined. even better today. denies chest pain or shortness of breath. Patient states that he is feeling even better today. US gallbladder shows gallstones. Objective - Results Result Diagrams: 09/27/17 07:09 09/29/17 05:50 Recent Labs: Laboratory Last Values WBC 6.3 Th/cmm (4.8-10.8) 09/27/17 07:09 RBC 5.32 Mil/cmm (3.80-5.80) 09/27/17 07:09 Hgb 17.2 gm/dL (12-16) 09/27/17 07:09 Hct 48.6 % (41.0-60) 09/27/17 07:09 MCV 91.3 fl (80-99) 09/27/17 07:09 MCH 32.3 pg (27.0-31.0) H 09/27/17 07:09 MCHC Differential 35.4 pg (28.0-36.0) 09/27/17 07:09 RDW 13.5 % (11.5-20.0) 09/27/17 07:09 Plt Count 100 Th/cmm (150-400) L 09/27/17 07:09 MPV 7.8 fl 09/27/17 07:09 Neutrophils % 68.5 % (40.0-80.0) 09/27/17 07:09 Lymphocytes % 20.2 % (20.0-50.0) 09/27/17 07:09 Monocytes % 10.7 % (2.0-10.0) H 09/27/17 07:09 Eosinophils % 0.6 % (0.0-5.0) 09/27/17 07:09 Basophils % 0.0 % (0.0-2.0) 09/27/17 07:09 PT 11.9 SECONDS (9.5-11.5) H 09/27/17 07:09 INR 1.13 (0.5-1.4) 09/27/17 07:09 Sodium 137 mEq/L (136-145) 09/29/17 05:50 Potassium 3.9 mEq/L (3.5-5.1) 09/29/17 05:50 Chloride 103 mEq/L (98-107) 09/29/17 05:50 Carbon Dioxide 25.5 mEq/L (21.0-31.0) 09/29/17 05:50 Anion Gap 12.4 (7.0-16.0) 09/29/17 05:50 BUN 22 mg/dL (7-25) 09/29/17 05:50 Creatinine 1.0 mg/dL (0.7-1.3) 09/29/17 05:50 Est GFR ( Amer) > 60.0 ml/min (>90) 09/29/17 05:50 Est GFR (Non-Af Amer) > 60.0 ml/min 09/29/17 05:50 BUN/Creatinine Ratio 22.0 09/29/17 05:50 Glucose 93 mg/dL (70-105) 09/29/17 05:50 Calcium 9.8 mg/dL (8.6-10.3) 09/29/17 05:50 Total Bilirubin 1.6 mg/dL (0.3-1.0) H 09/29/17 05:50 AST 73 U/L (13-39) H 09/29/17 05:50 ALT 85 U/L (7-52) H 09/29/17 05:50 Alkaline Phosphatase 77 U/L (34-104) 09/29/17 05:50 Creatine Kinase 100 U/L (30-223) 09/26/17 10:50 Troponin I 0.01 ng/mL (0.01-0.05) 09/26/17 10:50 B-Natriuretic Peptide 70.1 pg/mL (5.0-100.0) 09/29/17 05:50 Total Protein 7.3 gm/dL (6.0-8.3) 09/29/17 05:50 Albumin 3.9 gm/dL (4.2-5.5) L 09/29/17 05:50 Globulin 3.4 gm/dL 09/29/17 05:50 Albumin/Globulin Ratio 1.2 (1.0-1.8) 09/29/17 05:50 Triglycerides 77 mg/dL (<150) 09/26/17 10:50 Cholesterol 114 mg/dL (<200) 09/26/17 10:50 LDL Cholesterol Direct 65 mg/dL (75-193) L 09/26/17 10:50 HDL Cholesterol 41 mg/dL (23-92) 09/26/17 10:50 TSH 0.92 uIU/ml (0.34-5.60) 09/27/17 07:09 Urine Source CLEAN C 09/26/17 21:00 Urine Color YELLOW 09/26/17 21:00 Urine Clarity CLEAR (CLEAR) 09/26/17 21:00 Urine pH 6.0 (4.6 - 8.0) 09/26/17 21:00 Ur Specific [place] 1.025 (1.005-1.030) 09/26/17 21:00 Urine Protein NEGATIVE mg/dL (NEGATIVE) 09/26/17 21:00 Urine Glucose (UA) NEGATIVE mg/dL (NEGATIVE) 09/26/17 21:00 Urine Ketones TRACE mg/dL (NEGATIVE) 09/26/17 21:00 Urine Blood SMALL (NEGATIVE) H 09/26/17 21:00 Urine Nitrate NEGATIVE (NEGATIVE) 09/26/17 21:00 Urine Bilirubin SMALL (NEGATIVE) H 09/26/17 21:00 Urine Urobilinogen 2.0 E.U./dL (0.2 - 1.0) 09/26/17 21:00 Ur Leukocyte Esterase NEGATIVE (NEGATIVE) 09/26/17 21:00 Urine RBC 0-2 /hpf (0-5) H 09/26/17 21:00 Urine WBC NONE SEEN /hpf (0-5) 09/26/17 21:00 Ur Epithelial Cells NONE SEEN /lpf (FEW) 09/26/17 21:00 Urine Bacteria NONE SEEN /hpf (NONE SEEN) 09/26/17 21:00 Urine Opiates Screen NEGATIVE (NEGATIVE) 09/26/17 02:35 Urine Methadone Screen NEGATIVE (NEGATIVE) 09/26/17 02:35 Ur Barbiturates Screen NEGATIVE (NEGATIVE) 09/26/17 02:35 Ur Tricyclics Screen NEGATIVE (NEGATIVE) 09/26/17 02:35 Ur Phencyclidine Scrn NEGATIVE (NEGATIVE) 09/26/17 02:35 Amphetamines Screen NEGATIVE (NEGATIVE) 09/26/17 02:35 U Methamphetamines Scrn POSITIVE (NEGATIVE) H 09/26/17 02:35 U Benzodiazepines Scrn NEGATIVE (NEGATIVE) 09/26/17 02:35 U Cocaine Metab Screen NEGATIVE (NEGATIVE) 09/26/17 02:35 U Cannabinoids Screen NEGATIVE (NEGATIVE) 09/26/17 02:35 Hepatitis A IgM Ab Negative (Negative) 09/26/17 10:50 Hep Bs Antigen Negative (Negative) 09/26/17 10:50 Hep B Core IgM Ab Negative (Negative) 09/26/17 10:50 Hepatitis C Antibody >11.0 s/co ratio (0.0-0.9) H 09/26/17 10:50 - Physical Exam Vitals and I&O: Vital Signs Temp 97.6 F 09/30/17 00:00 Pulse 91 09/30/17 00:00 Resp 18 09/30/17 00:00 BP 204/76 09/30/17 00:00 Pulse Ox 97 09/30/17 00:00 Intake & Output 09/29/17 09/29/17 09/30/17 06:59 18:59 06:59 Intake Total 100 650 200 Balance 100 650 200 Weight (lbs) 97.636 kg 97.522 kg 97.522 kg Intake: Oral 100 650 200 Other: # Voids 8 4 0 # Bowel Movements 0 0 Weight Source Bedscale Bedscale Bedscale Active Medications: Current Medications Furosemide (Lasix) 40 mg IVP DAILY [facility] Stop: 11/27/17 16:59 Last Admin: 09/29/17 10:16 Dose: 40 mg Ceftriaxone Sodium 1 gm/ (Dextrose) 50 mls @ 100 mls/hr IV Q24HR [facility] Stop: 11/27/17 06:59 Last Admin: 09/29/17 06:22 Dose: 100 mls/hr Lactobacillus Rhamnosus (Culturelle 15b) 1 each PO DAILY [facility] Stop: 11/27/17 08:59 Last Admin: 09/29/17 10:17 Dose: 1 each Lorazepam (Ativan) 1 mg IVP Q4HR PRN; Protocol PRN Reason: Agitation Stop: 11/25/17 19:04 Last Admin: 09/26/17 21:50 Dose: 1 mg Metoprolol Tartrate (Lopressor) 25 mg PO BID [facility] Stop: 11/25/17 16:59 Last Admin: 09/29/17 17:53 Dose: Not Given Miscellaneous (Probiotic Screen) 1 ea MC PRN PRN PRN Reason: PROTOCOL Stop: 11/26/17 12:59 Nifedipine (Procardia Xl) 60 mg PO DAILY [facility] Stop: 11/27/17 16:59 Last Admin: 09/29/17 10:17 Dose: 60 mg Rivaroxaban (Xarelto) 10 mg PO DAILY [facility] Stop: 11/26/17 08:59 Last Admin: 09/29/17 10:18 Dose: 10 mg General: Alert, Oriented x3, No acute distress HEENT: Atraumatic, PERRLA, EOMI Neck: Supple Cardiovascular: Other (irregularly irregular) Lungs: Clear to auscultation Abdomen: Bowel sounds, Soft Extremities: no Clubbing, no Cyanosis, no Edema Assessment/Plan - Problem List Patient Problems: All Active Problems CHEST PALPATATIONS (Acute) - Assessment Assessment: Current Active Problems Problem Status Onset CHEST PALPATATIONS Acute Chest pain Cardiac Arrhythmia Hypertension Hyperlipidemia Elevated LFTs UTI CAD +UDS Hepatitis C Cholelithiasis - Plan Plan: continue current treatment for abd us continue cardiac meds per cardiology continue anticoagulant Consider HIDA scan cardiology consult GI consult
[2017-09-30] MEDS: Lactobacillus Rhamnosus GG 15 Billion CFU CAP.SPRINK PO SCH (09:47)
[2017-09-30] MEDS: NIFEdipine 30 mg ER Tab PO SCH (09:50)
--- NOTE | 2017-10-03 12:37 | Discharge Summary ---
DATE OF DISCHARGE: 09/30/2017 PRELIMINARY DIAGNOSES: 1. Chest pain. 2. Cardiac arrhythmia. 3. Hypertension. 4. Hyperlipidemia. 5. Elevated liver function tests. 6. Urinary tract infection. 7. Coronary artery disease. 8. Positive urine drug screen. Please see dictated report. 9. History of hepatitis C. DISCHARGE DIAGNOSES: 1. Chest pain, acute coronary syndrome ruled out. 2. Cardiac arrhythmia. 3. Hypertension. 4. Congestive heart failure. 5. Hyperlipidemia. 6. Hepatitis C. 7. Urinary tract infection. 8. Coronary artery disease. 9. Positive urinary drug screen. BRIEF HISTORY OF PRESENT ILLNESS: This is a 67-year-old male who presents to [facility] ER for palpitations and chest pain x1 day. The patient admits to having some dyspnea, but denies any trauma. Complains of having some headaches. No diaphoresis. Denies any nausea, vomiting, constipation, diarrhea, or fever or chills. While in the ER, the patient's blood pressure is noted to be elevated at 169/124 with a heart rate of 118. The patient has a history of hypertension, coronary artery disease, hyperlipidemia, and currently takes metoprolol tartrate 50 mg half a tablet twice a day. While in the ER, his initial lab work revealed a white count of 6.7, hemoglobin of 16.3, hematocrit of 47.2, and platelets 109. His chest x-ray reveals cardiomegaly along with CHF. The patient was found to be in atrial fibrillation with some nonspecific ST-T changes. The patient was then subsequently admitted for further evaluation and treatment. HOSPITAL COURSE: The patient improved during his hospital stay, had been seen and evaluated by Cardiology; see dictated report. The patient also was seen by GI due to the elevated liver function tests. Please see dictated report. Ultrasound of his gallbladder revealed positive cholelithiasis. The patient improved during his hospital stay, was told to follow up with his regular physician in 2-3 days and was also told to continue his current medications. [facility]# [id number]
== END 2017-09-30 12:00 | disposition home or self-care (01) | DRG 308 ==
LOC: ER 10:24 → TELE 14:32 → MSI 09-27 14:59
PROVIDERS: ADMIT Family Medicine; ATTEND Family Medicine
DX: I48.1 Persistent atrial fibrillation (principal); I50.23 Acute on chronic systolic (congestive) heart failure; N39.0 Urinary tract infection, site not specified; I11.0 Hypertensive heart disease with heart failure; I25.119 Atherosclerotic heart disease of native coronary artery with unspecified angina pectoris; I48.91 Unspecified atrial fibrillation; E78.5 Hyperlipidemia, unspecified; B19.20 Unspecified viral hepatitis C without hepatic coma; F17.200 Nicotine dependence, unspecified, uncomplicated; R07.89 Other chest pain; K80.20 Calculus of gallbladder without cholecystitis without obstruction; I50.9 Heart failure, unspecified; Z23 Encounter for immunization; Z82.49 Family history of ischemic heart disease and other diseases of the circulatory system
CPT/HCPCS: 36415-UA; 70450-TC; 71045-TC; 76705-TC; 80053-TC; 80061-TC; 80074-90; 80307; 81001-TC; 82550-TC; 83880-TC; 84443-TC; 84484-TC; 85025-TC; 85610-TC; 90732; 93005; 94760; J0696; J1940; J2060; Z7610